=== PATIENT | male | born 1960 ===

== ENCOUNTER 2017-09-11 15:27 | Emergency (ER) | payer OTHER ==
[2017-09-11 16:41] VITALS: BP 151/85; PULSE 89; RESP 16; TEMP 98.5; O2SAT 98
[2017-09-11] MEDS ORDERED: Oxycodone/Acetaminophen 5/325 mg Tab PO STA (17:18)
--- NOTE | 2017-09-11 17:19 | ED PDOC ---
HPI: Trauma/Fall - HPI Time Seen by Provider: 09/11/17 17:13 Chief Complaint (Nursing): Abnormal Skin Integrity Chief Complaint (Provider): Chin Injury, Left Shoulder Injury, Right Hand Injury History Per: Patient History/Exam Limitations: no limitations Injury Occurred (Timing): Just Before Arrival Additional History Per: Family () Additional Complaint(s): Unruly is a 57 y/o male who presents to the ED after falling approximately 8 feet off a ladder. He states his right hand braced the fall, and he hit his chin and left shoulder as well. He denies hitting his head or losing consciousness. PMD: None Past Medical History Reviewed: Historical Data, Nursing Documentation, Vital Signs Vital Signs: Last Vital Signs Temp 98.5 F 09/11/17 16:37 Pulse 89 09/11/17 16:37 Resp 16 09/11/17 16:37 BP 151/85 H 09/11/17 16:37 Pulse Ox 98 09/11/17 16:37 - Medical History PMH: Diabetes - Family History Family History: States: Unknown Family Hx - Social History Current smoker - smoking cessation education provided: No Alcohol: None Drugs: Denies - Home Medications Home Medications: Ambulatory Orders Medication Instructions Recorded Sulfamethoxazole/Trimethoprim 1 tab PO BID #20 tab 09/11/17 [Bactrim DS 800 mg-160 mg] - Allergies Allergies/Adverse Reactions: Allergies Allergy/AdvReac Type Severity Reaction Status Date / Time Penicillins Allergy RASH Verified 09/11/17 16:37 Review of Systems ROS Statement: Except As Marked, All Systems Reviewed And Found Negative Musculoskeletal: Positive for: Shoulder Pain (left), Hand Pain (right), Other ( chin pain) Physical Exam - Reviewed Nursing Documentation Reviewed: Yes Vital Signs Reviewed: Yes - Physical Exam Appears: Positive for: Well, Non-toxic, No Acute Distress Head Exam: Negative for: ATRAUMATIC (2cm horizontal laceration to left lower chin that crosses dermis, not through and through) Skin: Positive for: Normal Color, Warm, Dry Extremity: Positive for: Normal ROM (arms, right hand), Other (5cm raised erythematous section on left clavicle; echymotic section flexor pollicis, no snuff box tenderness, 5/5 strength) Neurologic/Psych: Positive for: Alert, Oriented - ECG O2 Sat by Pulse Oximetry: 98 (RA) Pulse Ox Interpretation: Normal Medical Decision Making Medical Decision Making: Time: 17:18 Initial Impression: Fall Injuries Initial Plan: --Percocet --XR Hand Right 3 Views --XR Shoulder Left Time: 18:35 XR RIGHT HAND FINDINGS: BONES: Bone alignment and mineralization are normal. No acute fracture. JOINTS: Normal. SOFT TISSUES: Normal. OTHER FINDINGS: None. IMPRESSION: No acute fracture or dislocation. XR LEFT SHOULDER IMPRESSION: No acute fracture or dislocation. Scribe Attestation: Documented by Gurpreet Kulkarni acting as a scribe for Qamar Pink PA-C MD Scribe Attestation: All medical record entries made by the Scribe were at my direction and personally dictated by me. I have reviewed the chart and agree that the record accurately reflects my personal performance of the history, physical exam, medical decision making, and the department course for this patient. I have also personally directed, reviewed, and agree with the discharge instructions and disposition. Procedures - Laceration/Wound Repair Chin Wound's Depth, Shape: stellate Wound Explored: clean Irrigated w/ Saline (ccs): 250 Betadine Prep?: Yes Anesthesia: 1% Lidocaine Volume Anesthetic (ccs): 5 Wound Repaired With: Sutures Suture Size/Type: 3:0, proline (2:0) Number of Sutures: 6 Layer Closure?: No Wound Complexity: Simple Progress: Wound well approximated; patient tolerated well Disposition - Clinical Impression Clinical Impression: Laceration of chin - Patient ED Disposition Is Patient to be Admitted: No Counseled Patient/Family Regarding: Studies Performed, Diagnosis, Need For Followup, Rx Given - Disposition Referrals: [facility] [Outside] Disposition: Routine/Home Disposition Time: 19:26 Condition: GOOD Prescriptions: Sulfamethoxazole/Trimethoprim [Bactrim DS 800 mg-160 mg] 1 tab PO BID #20 tab Instructions: Laceration Repair, Laceration Repair With Stitches (DC) Forms: [employer] (Comoran) - POA Location Of Wound: chin
[2017-09-11] MEDS ORDERED: Oxycodone/Acetaminophen 5/325 mg Tab ONE (17:25)
--- NOTE | 2017-09-11 18:37 | RAD ---
PROCEDURE: Right Hand Radiographs. HISTORY: r/o fx COMPARISON: None. FINDINGS: BONES: Bone alignment and mineralization are normal. No acute fracture. JOINTS: Normal. SOFT TISSUES: Normal. OTHER FINDINGS: None. IMPRESSION: No acute fracture or dislocation.
--- NOTE | 2017-09-11 19:24 | RAD ---
PROCEDURE: Radiographs of the Left Shoulder HISTORY: r/o fx COMPARISON: No prior. FINDINGS: BONES: No acute fracture or destructive bony lesion identified. JOINTS: Limited degenerative osteophyte development is seen at the inferior margins of the glenohumeral joint. The acromioclavicular appears unremarkable. SOFT TISSUES: Normal. OTHER FINDINGS: None. IMPRESSION: No acute fracture or destructive bony lesion. Limited degenerative change glenohumeral joint.
== END 2017-09-11 18:58 | disposition home or self-care (01) ==
LOC: H.ER 15:27
DX: S01.81XA Laceration without foreign body of other part of head, initial encounter (principal); M25.511 Pain in right shoulder; S69.91XA Unspecified injury of right wrist, hand and finger(s), initial encounter; W11.XXXA Fall on and from ladder, initial encounter; Y99.0 Civilian activity done for income or pay; E11.9 Type 2 diabetes mellitus without complications; Z88.0 Allergy status to penicillin

== ENCOUNTER 2017-09-19 13:37 | Emergency (ER) | payer OTHER ==
[2017-09-19 13:55] VITALS: BP 116/76; PULSE 95; RESP 20; TEMP 97.5; O2SAT 98
--- NOTE | 2017-09-19 14:23 | ED PDOC ---
HPI: Wound Care - HPI Time Seen by Provider: 09/19/17 13:41 Chief Complaint (Nursing): Suture/Staple Removal Chief Complaint (Provider): Suture removal History Per: Patient History Of Present Illness: 57yo male, reports he fell and injured his chin 8 days ago, sustaining a laceration. Patient was evaluated in this ER and had 5 sutures placed with no complication. Patient was placed on a course of antibiotics and instructed to return to ER for suture removal. Patient presents today for suture removal; denies any fever, chills, swelling, redness or warmth to suture site. He offers no other medical complaints. Exam Limitations: no limitations Past Medical History Reviewed: Historical Data, Nursing Documentation, Vital Signs Vital Signs: Last Vital Signs Temp 97.5 F L 09/19/17 13:53 Pulse 95 H 09/19/17 13:53 Resp 20 09/19/17 13:53 BP 116/76 09/19/17 13:53 Pulse Ox 98 09/19/17 13:53 - Medical History PMH: Diabetes - Surgical History Surgical History: No Surg Hx - Family History Family History: States: Unknown Family Hx - Home Medications Home Medications: Ambulatory Orders Medication Instructions Recorded Sulfamethoxazole/Trimethoprim 1 tab PO BID #20 tab 09/11/17 [Bactrim DS 800 mg-160 mg] - Allergies Allergies/Adverse Reactions: Allergies Allergy/AdvReac Type Severity Reaction Status Date / Time Penicillins Allergy RASH Verified 09/19/17 13:53 Review of Systems ROS Statement: Except As Marked, All Systems Reviewed And Found Negative Constitutional: Negative for: Fever, Chills Skin: Positive for: Other (laceration to left chin) Physical Exam - Reviewed Nursing Documentation Reviewed: Yes Vital Signs Reviewed: Yes - Physical Exam Appears: Positive for: Non-toxic, No Acute Distress Head Exam: Positive for: ATRAUMATIC, NORMAL INSPECTION, NORMOCEPHALIC Skin: Positive for: Normal Color (healed laceration wtih [address]; no erythema, edema, drainage, streaking noted. no signs of infection.), Warm, Dry ENT: Positive for: Normal ENT Inspection Neck: Positive for: Supple Cardiovascular/Chest: Positive for: Regular Rate, Rhythm Respiratory: Positive for: Normal Breath Sounds. Negative for: Respiratory Distress Neurologic/Psych: Positive for: Alert, Oriented - ECG O2 Sat by Pulse Oximetry: 98 (RA) Pulse Ox Interpretation: Normal Medical Decision Making Medical Decision Making: Impression: Suture removal Plan: -- Sutures removed by provider with suture removal kit (11 blade) Patient tolerated procedure well. Stable for discharge home. Scribe Attestation: Documented by Scarlet Lopez, acting as a scribe for MONISHA Lerma. Provider Scribe Attestation: All medical record entries made by the Scribe were at my direction and personally dictated by me. I have reviewed the chart and agree that the record accurately reflects my personal performance of the history, physical exam, medical decision making, and the department course for this patient. I have also personally directed, reviewed, and agree with the discharge instructions and disposition. Disposition - Clinical Impression Clinical Impression: Removal of suture - Disposition Disposition: Routine/Home Disposition Time: 14:28 Condition: STABLE Instructions: Stitches Removal Forms: [employer] (Lao) Print Language: ENGLISH
== END 2017-09-19 14:52 | disposition home or self-care (01) ==
LOC: H.ER 13:37
DX: Z48.02 Encounter for removal of sutures (principal); E11.9 Type 2 diabetes mellitus without complications; Z88.0 Allergy status to penicillin

== ENCOUNTER 2018-07-10 18:13 | Emergency (ER) | payer MEDICAID ==
[2018-07-10 18:59] VITALS: O2SAT 97
[2018-07-10] MEDS ORDERED: Morphine 4 MG/ML VIAL IV STA (21:19)
--- NOTE | 2018-07-10 21:43 | ED PDOC ---
HPI: Abdomen Time Seen by Provider: 07/10/18 21:10 Chief Complaint (Nursing): Abdominal Pain Chief Complaint (Provider): Abdominal pain History Per: Patient, Family, Building And Grounds Supervisor History/Exam Limitations: no limitations Additional Complaint(s): Pt reports RLQ pain X 3 days, worse with ambulation, did not take pain medic ation. Denies fever, nausea, vomiting, constipation, diarrhea, urinary symptoms. Last BM this AM. Past Medical History Reviewed: Nursing Documentation, Vital Signs Vital Signs: Last Vital Signs Temp 97.6 F 07/10/18 18:57 Pulse 81 07/10/18 18:57 Resp 20 07/10/18 18:57 BP 129/85 07/10/18 18:57 Pulse Ox 97 07/10/18 18:57 - Medical History PMH: Diabetes - Family History Family History: States: Unknown Family Hx - Living Arrangements Living Arrangements: With Family - Social History Current smoker - smoking cessation education provided: No Alcohol: None - Home Medications Home Medications: Ambulatory Orders Medication Instructions Recorded Sulfamethoxazole/Trimethoprim 1 tab PO BID #20 tab 09/11/17 [Bactrim DS 800 mg-160 mg] - Allergies Allergies/Adverse Reactions: Allergies Allergy/AdvReac Type Severity Reaction Status Date / Time Penicillins Allergy RASH Verified 09/19/17 13:53 Review of Systems Constitutional: Negative for: Fever, Chills Cardiovascular: Negative for: Chest Pain Respiratory: Negative for: Cough, Shortness of Breath Gastrointestinal: Positive for: Abdominal Pain. Negative for: Nausea, Vomiting, Diarrhea Genitourinary Male: Negative for: Dysuria, Hematuria Musculoskeletal: Positive for: Back Pain Skin: Negative for: Rash, Lesions Neurological: Negative for: Headache Physical Exam - Reviewed Nursing Documentation Reviewed: Yes Vital Signs Reviewed: Yes - Physical Exam Appears: Positive for: Well, No Acute Distress Skin: Positive for: Normal Color, Warm, Dry Eye Exam: Positive for: Normal appearance, EOMI, PERRL Cardiovascular/Chest: Positive for: Regular Rate, Rhythm Respiratory: Positive for: Normal Breath Sounds. Negative for: Rales, Rhonchi, Wheezing Gastrointestinal/Abdominal: Positive for: Bowel Sounds, Soft, Tenderness (RLQ). Negative for: Mass, Guarding, Rebound Back: Positive for: Normal Inspection. Negative for: L CVA Tenderness, R CVA Te nderness Extremity: Positive for: Normal ROM Neurologic/Psych: Positive for: Alert, Oriented - Laboratory Results Result Diagrams: 07/10/18 22:00 07/10/18 22:00 - ECG O2 Sat by Pulse Oximetry: 97 Medical Decision Making Medical Decision Makin yo male with RLQ pain. - labs - CT abd/pelvis - Morphine Disposition - Clinical Impression Clinical Impression: Abdominal discomfort, Diverticulosis - Patient ED Disposition Is Patient to be Admitted: Transfer of Care - Disposition Referrals: [facility] [Outside] Alexis Osborne MD, PhD [Staff Provider] - Disposition Time: 00:00 Condition: STABLE Additional Instructions: Take Tylenol for pain. Follow up with color corrector for further evaluation of gastroenteritis and diverticulosis. Return to the emergency department if symptoms worsen or if new symptoms develop. Instructions: Diverticulosis, Nausea and Vomiting, Adult (DC), Viral Gastroenteritis, Adult (DC) Forms: [employer] (Upper Sorbian) Print Language: ROMANIAN Patient Signed Over To: Nata Rodrigez
[2018-07-10] MEDS ORDERED: Morphine 4 MG/ML VIAL ONE (21:47)
[2018-07-10 22:09] LABS: BASO % 0.6 % (0.0-2.0); EOS # 0.3 K/uL (0.0-0.7); EOS % 4.7 % (0.0-4.0); HEMOGLOBIN 14.9 g/dL (12.0-18.0); LYMPH # 1.7 K/uL (1.0-4.3); LYMPH % 23.1 % (20.0-40.0); MEAN CELL VOLUME 86.4 fl (80.0-94.0); MEAN CORPUSCULAR HEMOGLOBIN 28.6 pg (27.0-31.0); MEAN CORPUSCULAR HGB CONC 33.1 g/dL (33.0-37.0); MEAN PLATELET VOLUME 8.1 fl (7.2-11.7); MONO # 0.6 K/uL (0.0-0.8); MONO % 7.4 % (0.0-10.0); NEUT # 4.8 K/uL (1.8-7.0); NEUT % 64.2 % (50.0-75.0); RBC 5.2 Mil/uL (4.40-5.90); RED CELL DISTRIBUTION WIDTH 13.2 % (11.5-14.5); WHITE BLOOD COUNT 7.5 K/uL (4.8-10.8)
[2018-07-10 22:15] LABS: INR 1.1; PROTHROMBIN TIME 12.6 Seconds (9.8-13.1)
[2018-07-10 22:17] LABS: PARTIAL THROMBOPLASTIN TIME 36.1 Seconds (25.6-37.1)
[2018-07-10 22:18] LABS: ALB/GLOB RATIO 1.4 (1.0-2.1); ALBUMIN 4.3 g/dL (3.5-5.0); ALT/SGPT 44 U/L (21-72); AST/SGOT 36 U/L (17-59); BLOOD UREA NITROGEN 23 mg/dl (9-20); GFR NON-AFRICAN AMERICAN > 60
[2018-07-10] MEDS ORDERED: Iohexol 300 100 ML IJ ONE (22:31)
[2018-07-10] MEDS ORDERED: Sodium Chloride 0.9% 50 ML IV ONE (22:31)
[2018-07-10 23:32] LABS: URINE BILIRUBIN NEGATIVE (NEGATIVE); URINE BLOOD NEGATIVE (NEGATIVE); URINE CLARITY CLEAR (Clear); URINE COLOR STRAW (YELLOW); URINE GLUCOSE (UA) NEG (NEGATIVE); URINE LEUKOCYTE ESTERASE NEG Leu/uL (Negative); URINE PROTEIN NEGATIVE (NEGATIVE); URINE UROBILINOGEN 0.2-1.0 mg/dL (0.2-1.0)
--- NOTE | 2018-07-11 00:24 | ED PDOC ---
- Laboratory Results Result Diagrams: 07/10/18 22:00 07/10/18 22:00 Lab Results: PT 12.6 Seconds (9.8-13.1) 07/10/18 22:00 INR 1.1 07/10/18 22:00 APTT 36.1 Seconds (25.6-37.1) 07/10/18 22:00 Total Bilirubin 0.4 mg/dl (0.2-1.3) 07/10/18 22:00 AST 36 U/L (17-59) 07/10/18 22:00 ALT 44 U/L (21-72) 07/10/18 22:00 Alkaline Phosphatase 59 U/L (38-126) 07/10/18 22:00 Total Protein 7.5 G/DL (6.3-8.2) 07/10/18 22:00 Albumin 4.3 g/dL (3.5-5.0) 07/10/18 22:00 Globulin 3.1 gm/dL (2.2-3.9) 07/10/18 22:00 Albumin/Globulin Ratio 1.4 (1.0-2.1) 07/10/18 22:00 Urine Color Straw (YELLOW) 07/10/18 23:26 Urine Clarity Clear (Clear) 07/10/18 23:26 Urine pH 6.0 (5.0-8.0) 07/10/18 23:26 Ur Specific [place] 1.010 (1.003-1.030) 07/10/18 23:26 Urine Protein Negative mg/dL (NEGATIVE) 07/10/18 23:26 Urine Glucose (UA) Neg mg/dL (NEGATIVE) 07/10/18 23:26 Urine Ketones Negative mg/dL (NEGATIVE) 07/10/18 23:26 Urine Blood Negative (NEGATIVE) 07/10/18 23:26 Urine Nitrate Negative (NEGATIVE) 07/10/18 23:26 Urine Bilirubin Negative (NEGATIVE) 07/10/18 23:26 Urine Urobilinogen 0.2-1.0 mg/dL (0.2-1.0) 07/10/18 23:26 Ur Leukocyte Esterase Neg Horacio/uL (Negative) 07/10/18 23:26 Urine RBC (Auto) 1 /hpf (0-3) 07/10/18 23:26 Urine Microscopic WBC < 1 /hpf (0-5) 07/10/18 23:26 - ECG O2 Sat by Pulse Oximetry: 97 (RA) Pulse Ox Interpretation: Normal Medical Decision Making Medical Decision Making: Time: --Patient signed out to this provider by Dr. Tatum, pending CT. Patient will most likely be discharged home. Time: 50 CT shows colitis and enteritis as well diverticulosis, but no diverticulitis. Patient feeling better, labs unremarkable, patient to be discharged home, given referral for shearer screen measurer and trimmer. Tylenol or Motrin for pain. Return parameters discussed. Scribe Attestation: Documented by Brittney Pham, acting as a scribe for Nata Rodrigez MD. Provider Scribe Attestation: All medical record entries made by the Scribe were at my direction and personally dictated by me. I have reviewed the chart and agree that the record accurately reflects my personal performance of the history, physical exam, medical decision making, and the department course for this patient. I have also personally directed, reviewed, and agree with the discharge instructions and disposition. Disposition - Clinical Impression Clinical Impression: Abdominal discomfort, Diverticulosis - POA Present On Arrival: None - Disposition Referrals: Alexis Osborne MD, PhD [Staff Provider] - Disposition: Routine/Home Disposition Time: 00:51 Condition: STABLE Additional Instructions: Take Tylenol for pain. Follow up with shearer screen measurer and trimmer for further evaluation of gastroenteritis and diverticulosis. Return to the emergency department if symptoms worsen or if new symptoms develop. Instructions: Diverticulosis, Nausea and Vomiting, Adult (DC), Viral Gastroenteritis, Adult (DC) Forms: [employer] (Belarusian) Print Language: MALTESE
[2018-07-11 01:26] VITALS: BP 141/82; PULSE 90; RESP 18; TEMP 97.7
--- NOTE | 2018-07-11 15:52 | CT ---
Date of service: 07/10/2018 PROCEDURE: CT Abdomen and Pelvis with contrast HISTORY: RLQ pain COMPARISON: None. TECHNIQUE: Contrast dose: 95 mL Omnipaque 300 Radiation dose: Total exam DLP = 661.29 mGy-cm. This CT exam was performed using one or more of the following dose reduction techniques: Automated exposure control, adjustment of the mA and/or kV according to patient size, and/or use of iterative reconstruction technique. FINDINGS: LOWER THORAX: Unremarkable. LIVER: Mild hepatomegaly. Normal contour. Mild diffusely diminished attenuation. There is an area of relative increased attenuation just superior to the gallbladder fossa, in the medial segment of the left hepatic lobe. This is best seen on series 3, image 40 through 47. This measures approximately 1.7 x 2.5 x 3.2 cm. Most likely this represents focal fatty sparing. However, this could be proved if warranted with magnetic resonance imaging.. No other mass. No biliary ductal dilatation. GALLBLADDER AND BILE DUCTS: Unremarkable. PANCREAS: Unremarkable. No gross lesion or ductal dilatation. SPLEEN: Minimal splenomegaly. The spleen measures approximately 13 cm in greatest dimension. ADRENALS: Unremarkable. No mass. KIDNEYS AND URETERS: Unremarkable. No hydronephrosis. No solid mass. VASCULATURE: Unremarkable. No aortic aneurysm. There is atherosclerotic calcification of the abdominal aorta BOWEL: There is diverticulosis of the splenic flexure and descending colon. No evidence of diverticulitis. No other abnormal bowel loops. APPENDIX: Normal appendix. PERITONEUM: Unremarkable. No free fluid. No free air. LYMPH NODES: Unremarkable. No enlarged lymph nodes. BLADDER: Unremarkable. REPRODUCTIVE: Enlarged prostate. This measures 7.2 cm transversely. BONES: No acute fracture. OTHER FINDINGS: None. IMPRESSION: No acute abnormality. Mild hepatosplenomegaly. Mild fatty infiltration of the liver. Apparent echogenic lesion adjacent to the gallbladder fossa, 3.2 cm greatest dimension, likely focal fatty sparing. However, this could be confirmed if warranted with magnetic resonance imaging diverticulosis of the splenic flexure and descending colon without evidence of diverticulitis. Prostate enlargement. The preliminary findings for this examination were reported by [facility] at 12:08 a.m. on 07/11/2018. There is discordance of this report with the preliminary findings. Relatively high attenuation lesion in the left hepatic lobe was not described in the preliminary report of this examination.
--- NOTE | 2018-07-14 12:26 | CARD ---
APPROVED REPORT Date of service: 07/10/2018 EKG Measurement Heart [id number] <Conclusion> Atrial fibrillation Abnormal ECG
== END 2018-07-11 01:31 | disposition home or self-care (01) ==
LOC: H.ER 18:13
DX: E11.9 Type 2 diabetes mellitus without complications (principal); N40.0 Benign prostatic hyperplasia without lower urinary tract symptoms; Z88.0 Allergy status to penicillin
CPT/HCPCS: 74177; 80053; 81003; 85025; 85610; 85730; 93005; 96374; 99283; J2270; Q9967